=== PATIENT | male | born 1985 | race Caucasian/White ===

== ENCOUNTER → 2020-09-16 | Outpatient (CLI) | payer OTHER ==
--- NOTE | 2020-09-16 11:42 | RAD ---
EXAM: Left shoulder sonogram. HISTORY: Pain at flu shot injection site. TECHNIQUE: Sonographic imaging of the left shoulder at the site of concern was performed. COMPARISON: None. FINDINGS: There is no suspicious sonographic finding within the right shoulder soft tissues at the site of reported pain. No hematoma, fluid collection or mass is seen. IMPRESSION: Unremarkable sonographic imaging of the left shoulder at the site of reported pain. Electronically signed by: Ashlie Newberry MD (09/16/2020 11:39 AM) [facility]
== END ==
LOC: US 10:35
PROVIDERS: ATTEND Family Medicine Sports Medicine
DX: R22.42 Localized swelling, mass and lump, left lower limb (principal)
CPT/HCPCS: 76881